=== PATIENT | female | born 1970 | race Caucasian/White ===

== ENCOUNTER 2018-07-26 10:15 | Emergency (ER) | payer OTHER ==
[~2018-07-26] VITALS: Ht 172.7 cm; Wt 72.6 kg
[2018-07-26 12:43] VITALS: BP 133/81
== END 2018-07-26 12:44 | disposition home or self-care (01) ==
LOC: ER 10:15
DX: S00.83XA Contusion of other part of head, initial encounter (principal); W01.10XA Fall on same level from slipping, tripping and stumbling with subsequent striking against unspecified object, initial encounter; Y93.89 Activity, other specified; Y92.89 Other specified places as the place of occurrence of the external cause; Y99.8 Other external cause status